=== PATIENT | male | born 1970 | race Caucasian/White ===

== ENCOUNTER 2019-07-18 19:22 | Emergency (ER) | payer BC ==
[2019-07-18 19:33] VITALS: BP 171/82
[2019-07-18] MEDS ORDERED: Orphenadrine 100 MG Tab.ER PO STA (20:07)
[2019-07-18] MEDS ORDERED: predniSONE 20 MG Tab PO STA (20:07)
--- NOTE | 2019-07-18 20:13 | EDM.PDOC ---
ED HPI GENERAL MEDICAL PROBLEM - General Chief Complaint: Back Pain or Injury Stated Complaint: pain in between shoulders and left side of body Time Seen by Provider: 07/18/19 19:32 Source of Information: Reports: Patient, Significant Other (Girlfriend) History Limitations: Reports: No Limitations - History of Present Illness INITIAL COMMENTS - FREE TEXT/NARRATIVE: The patient states that he was reaching out to lift something heavy this past 07/15/2019, when he felt something pop in the back of his neck, and he immediately had pain to that area. He states that the pain has progressively gotten worse. The pain is made worse with turning his head to the left or right , tipping his chin to his chest, extending his neck, or moving either of his upper extremities. He reports that he has a burning sensation running down his left upper extremity to the mid-forearm, made worse with tipping his chin to his chest, extending his neck, or turning his head to the left (but not to the right). The patient has been taking Cuttyhunk and Flexeril previously prescribed for lower back pain, along with ibuprofen, without adequate relief. The patient has a history of lumbar disc disease, status post lumbar microdiscectomy in 2000, and with herniated disks at L4-L5 and L5-S1. He states that he was evaluated for lumbar surgery, but that his insurance would not pay for it. He is therefore taking Cuttyhunk and Flexeril. The patient smokes about one pack of cigarette per day. He is aware that smoking contributes to disc disease. The patient's PCP is Dr. Tejinder Beach. His Spinal Surgeon is Dr. Chalo Le. Upper Back Pain Score (Numeric/FACES): 10 - Related Data Allergies Allergy/AdvReac Type Severity Reaction Status Date / Time Sulfa (Sulfonamide Allergy Swelling Verified 05/06/15 10:17 Antibiotics) venom-honey bee Allergy Swelling Verified 05/06/15 10:17 [bee venom (honey bee)] Home Meds: Home Meds Hydrocodone/Acetaminophen [Hydrocodon-Acetaminophen 5-325] 1 tab PO Q6H PRN 09/09 [History] Cyclobenzaprine [Flexeril] 10 mg PO TID PRN 07/18/19 [History] Ibuprofen [Motrin] 200 mg PO TID 07/18/19 [History] Orphenadrine [Norflex] 1 tab PO Q12H PRN #14 tab.er 07/18/19 [Rx] predniSONE [Prednisone] 1 tab PO QPM #7 tablet 07/18/19 [Rx] Past Medical History Other HEENT History: dentures Cardiovascular History: Reports: Hypertension (untreated) Musculoskeletal History: Reports: Back Pain, Chronic (L5-L5, L5-S1 DDD) - Past Surgical History HEENT Surgical History: Reports: Oral Surgery (dental extractions) GI Surgical History: Reports: Appendectomy (as a child) Neurological Surgical History: Reports: Lumbar Spine (L4-L5 microdiscectomy, 2000) Musculoskeletal Surgical History: Reports: Shoulder Surgery (left open, right arthroscopic) Social & Family History - Tobacco Use Smoking Status *Q: Current Every Day Smoker Years of Tobacco use: 36 Packs/Tins Daily: 1 Packs/Tins Daily Comment: Down from 1.5 ppd - Caffeine Use Caffeine Use: Reports: Coffee, Soda - Alcohol Use Alcohol Use History: Yes Alcohol Use Frequency: Socially - Recreational Drug Use Recreational Drug Use: No - Living Situation & Occupation Living situation: Reports: Single, with Significant Other (Girlfriend) Occupation: Employed ([employer]) ED ROS GENERAL - Review of Systems Review Of Systems: ROS reveals no pertinent complaints other than HPI. ED EXAM, UPPER BACK/NECK PAIN - Physical Exam Exam: See Below Exam Limited By: No Limitations General Appearance: Alert, WD/WN, No Apparent Distress, Other (The patient turned his whole body rather than turn his neck. He keeps his head in the neutral position facing forward.) Eye Exam: Bilateral Eye: EOMI, Normal Inspection Ears Exam: Normal External Exam, Hearing Grossly Normal Nose Exam: Normal Inspection Throat/Mouth Exam: Normal Inspection, Normal Lips, Normal Voice, No Airway Compromise Head Exam: Atraumatic, Normocephalic Neck Exam: Other (The patient reports significant tenderness to his posterior neck, and only allowed me to lay right hand on the neck, without significant palpation. No significantly increased calor noted.) Course - Vital Signs Last Recorded V/S: Last Vital Signs Temp 37.2 C 07/18/19 19:32 Pulse 118 H 07/18/19 19:32 Resp 20 07/18/19 19:32 BP 171/82 H 07/18/19 19:32 Pulse Ox 95 07/18/19 19:32 - Orders/Labs/Meds Orders: Active Orders 24 hr Category Date Time Status Orphenadrine [Norflex] Med 07/18/19 20:07 Stat 100 mg PO ONETIME STA predniSONE Med 07/18/19 20:07 Stat 60 mg PO ONETIME STA - Re-Assessments/Exams Free Text/Narrative Re-Assessment/Exam: 07/18/19 20:08 Based on the patient's history and physical examination, he is most likely suffering from a herniated cervical intervertebral disc. It is remotely possible that he tore a muscle and is suffering from a local hematoma, and for that reason, I offered to perform a CT scan of his neck region, however, the patient declined, opting instead to pursue an MRI via his PCP on Sunday. For today's purposes, the patient will be given a loading dose of prednisone and started on Norflex. I will prescribe a 7 day course of prednisone and Norflex. The patient will continue to take his previously prescribed Cuttyhunk, but he is to stop taking the ibuprofen and Flexeril. He will follow-up with his PCP on Sunday , 07/21/2019. Departure - Departure Time of Disposition: 20:09 Disposition: Home, Self-Care 01 Condition: Good Clinical Impression: Herniated cervical intervertebral disc, Left cervical radiculopathy - Discharge Information *PRESCRIPTION DRUG MONITORING PROGRAM REVIEWED*: Not Applicable *COPY OF PRESCRIPTION DRUG MONITORING REPORT IN PATIENT TAWNYA: Not Applicable Referrals: Tejinder Beach MD [Primary Care Provider] - Chalo Le MD [Consulting Physician] - Additional Instructions: You were seen in the emergency room for 3 days of lower neck/upper back pain that developed after lifting something. Based on your history and physical examination, you are most likely suffering from a herniated cervical intervertebral disc. A CT scan of your neck region was offered, but declined. You have been started on the muscle relaxant Norflex and the steroid prednisone. Prescriptions for Norflex and prednisone have been sent to the [facility], located in the [facility] grocery store. Take one tablet of Norflex every 12 hours, starting tomorrow morning, 07/19/2019, as prescribed. If you take Norflex, do not also take Flexeril. Take one tablet of prednisone every evening, starting tomorrow evening, Sunday , 07/19/2019, as prescribed. If you take prednisone, do not also take an NSAID, such as ibuprofen (Mortin, Advil), aspirin, or naproxen (Aleve). Continue to take Cuttyhunk as previously prescribed. Follow-up with your PCP, Dr. Tejinder Beach, this coming Sunday, 2018, to discuss the option of obtaining an MRI of your neck. If any other problems, please do not hesitate to return to the ER. - My Orders Last 24 Hours: My Active Orders 07/18/19 20:07 Orphenadrine [Norflex] 100 mg PO ONETIME STA predniSONE 60 mg PO ONETIME STA - Assessment/Plan Last 24 Hours: My Active Orders 07/18/19 20:07 Orphenadrine [Norflex] 100 mg PO ONETIME STA predniSONE 60 mg PO ONETIME STA
== END 2019-07-18 20:24 | disposition home or self-care (01) ==
LOC: JD.ED 19:22
DX: M50.10 Cervical disc disorder with radiculopathy, unspecified cervical region (principal); I10 Essential (primary) hypertension; F17.210 Nicotine dependence, cigarettes, uncomplicated; Z88.2 Allergy status to sulfonamides; Z91.030 Bee allergy status; Z79.899 Other long term (current) drug therapy
CPT/HCPCS: 99283; A9270